=== PATIENT | male | born 1965 | race Caucasian/White ===

== ENCOUNTER → 2020-05-18 | Outpatient (CLI) | payer OTHER ==
[~2020-05-18] MED LIST: IBUP800 PO
[2020-05-20 16:51] LABS: CORONAVIRUS (COVID19) CSH-NRL Negative (Negative)
== END | disposition home or self-care (01) ==
LOC: LAB SHORT 16:31
PROVIDERS: Physician Assistant
DX: Z20.828 Contact with and (suspected) exposure to other viral communicable diseases (principal)
CPT/HCPCS: U0003

== ENCOUNTER 2025-02-14 06:47 | Day surgery (SDC) | payer OTHER ==
[~2025-02-14] VITALS: Ht 182.9 cm; Wt 109.0 kg
[2025-02-14] VITALS (11 sets, daily range): BP systolic 99–146; BP diastolic 65–94
[~2025-02-14 06:47] MED LIST changes: +LOSARTAN-HCTZ1 EAC5 PO
[2025-02-14] MEDS ORDERED: Bupivacaine 0.5% HCl 5 MG/ML 30MLVIAL ONE (07:32)
--- NOTE | 2025-02-14 07:44 | NUR ---
History, Chart, Medications and Allergies reviewed before start of procedure. Pre-Op teaching done. Pt verbalizes understanding. Patient confirms NPO status and agrees with scheduled surgery.
[2025-02-14] MEDS ORDERED: FentaNYL Citrate 50 MCG/ML 2 ML Injection ONE ×3 (08:00→11:09)
[2025-02-14] MEDS ORDERED: Rocuronium Bromide 10 MG/ML 5ML Injection IV ONE (08:00)
[2025-02-14] MEDS ORDERED: Ondansetron HCl 2 MG / ML 2ML Vial ONE (08:18)
[2025-02-14] MEDS ORDERED: Dexamethasone Sod Phos 10 MG/ML 1ML VIAL ONE (08:18)
[2025-02-14] MEDS ORDERED: ePHEDrine Sulfate 50 MG/ML 1ML Injection ONE (08:25)
[2025-02-14] MEDS ORDERED: Glycopyrrolate 0.2 MG/ML 5ML VIAL ONE (08:53)
[2025-02-14] MEDS ORDERED: Phenylephrine HCl 100 MCG/ML-NS 10MLSYR (1MG/10ML) ONE (10:19)
[2025-02-14] MEDS ORDERED: Sugammadex Sodium 200 MG/2ML SDV (100 MG/ML) ONE (10:26)
[2025-02-14] MEDS ORDERED: OxyCODONE 5 mg/Acetamin 325 mg TABLET PO PRN (10:55)
--- NOTE | 2025-02-14 12:13 | NUR ---
Discharge instructions reviewed with patient. Patient verbalizes understanding. Copy given to patient to take home. Dressings X5 intact. little bit of drainage from belly button incision, re-inforced with 4X4's. ABD binder in place. Prescription placed electronically. Patient States Post-Procedure ride home has been arranged. Discharged via wheelchair to private car for ride home.
== END 2025-02-14 12:15 | disposition home or self-care (01) ==
LOC: ORSCMMR 06:47 → ORD 08:00 → ORSCMMR 12:15
PROVIDERS: Surgery
PROC: 8E0W4CZ Robotic Assisted Procedure of Trunk Region, Percutaneous Endoscopic Approach (ICD-10-PCS; principal; 2025-02-14 08:00)
PROC: 0WUF4JZ Supplement Abdominal Wall with Synthetic Substitute, Percutaneous Endoscopic Approach (ICD-10-PCS; principal; 2025-02-14 08:00)
DX: K42.0 Umbilical hernia with obstruction, without gangrene (principal); I10 Essential (primary) hypertension; Z87.891 Personal history of nicotine dependence; E66.9 Obesity, unspecified; Z68.32 Body mass index [BMI] 32.0-32.9, adult; Z79.899 Other long term (current) drug therapy
CPT/HCPCS: A9270; C1781; J1100; J2371; J2405; J2704; J3010; J7120

== ENCOUNTER → 2025-03-17 | Outpatient (CLI) | payer OTHER | END | disposition home or self-care (01) | LOC: LAB SHORT 14:38 → LAB 14:38 | DX: C61 Malignant neoplasm of prostate (principal) | CPT/HCPCS: 88305; 88341; 88342 ==